=== PATIENT | male | born 1965 | race Caucasian/White ===

== ENCOUNTER 2018-02-12 14:22 | Outpatient (CLI) | payer OTHER | END 2018-02-12 14:23 | disposition home or self-care (01) | LOC: RT 14:22 | PROVIDERS: ATTEND Internal Medicine Gastroenterology | DX: I10 Essential (primary) hypertension (principal) | CPT/HCPCS: 93005 ==

== ENCOUNTER 2018-04-11 10:34 | Day surgery (SDC) | payer OTHER ==
[2018-04-11] MEDS ORDERED: LACTATED RINGERS 1,000 ML IV ONE (10:48)
--- NOTE | 2018-04-11 11:12 | ANESTHESIA ---
Pre-Anesthesia VS, & Labs - NPO >8 hours <Noman Barclay - Last Filed: 04/11/18 11:10> - NPO >8 hours <Aparna Chandler - Last Filed: 04/11/18 11:41> - Diagnosis GERD, colon polyps, alcoholic liver disease (Noman Barclay) GERD, colon polyps, alcoholic liver disease (Aparna Chandler) - Procedure EGD, colonoscopy (Noman Barclay) EGD, colonoscopy (Aparna Chandler) Height 5 ft 11 in Weight (kg) 76.2 kg Home Medications and Allergies <Noman Barclay - Last Filed: 04/11/18 11:10> <Aparna Chandler - Last Filed: 04/11/18 11:41> Home Medications: Ambulatory Orders Atorvastatin [Lipitor] 20 mg PO DAILY 04/11/18 Milk Thistle 150 mg PO DAILY 04/11/18 Omeprazole 20 mg PO DAILY 04/11/18 Atorvastatin [Lipitor] 20 mg PO DAILY 04/11/18 Milk Thistle 150 mg PO DAILY 04/11/18 Omeprazole 20 mg PO DAILY 04/11/18 Allergies/Adverse Reactions: Allergies Allergy/AdvReac Type Severity Reaction Status Date / Time No Known Drug Allergies Allergy Verified 04/11/18 10:56 Anes History & Medical History - Anesthetic History Anesthesia Complications: reports: No previous complications - Medical History Cardiovascular: reports: Hypertension, High cholesterol Pulmonary: reports: None Gastrointestinal: reports: GERD, Other (possible alcoholic liver disease) Urinary: reports: None Musculoskeletal: reports: None Endocrine/Autoimmune: reports: None Skin: reports: None - Surgical History General: Colonoscopy, EGD Orthopedic: Other (jaw reconstruction) <Noman Barclay - Last Filed: 04/11/18 11:10> Results - EKG Results EKG Comparison: Reviewed EKG <Noman Barclay - Last Filed: 04/11/18 11:10> Exam General: Alert Dental: WNL Mouth Openin Fingerbreadth Thyromental Distance: greater than 6 cm Respiratory: Lungs clear Cardiovascular: Regular rate, Normal S1, Normal S2, No murmurs <Noman Barclay - Last Filed: 04/11/18 11:10> Plan Anesthesia Type: MAC Consent for Procedure(s) Verified and Reviewed: Yes Code Status: Attempt Resuscitation ASA classification: 3-Severe systemic disease Is this case an emergency?: No <Noman Barclay - Last Filed: 04/11/18 11:10>
[2018-04-11] MEDS ORDERED: LIDOCAINE 2% 50 ML MDV IV ONE (13:00)
[2018-04-11] MEDS ORDERED: PROPOFOL 200 MG/20 ML VIAL IVP ONE (13:00)
[2018-04-11] MEDS ORDERED: LIDO GARGLE 30 ML BOTTLE PO ONE (13:20)
[2018-04-11 14:51] VITALS: BP 148/87
== END 2018-04-11 10:35 | disposition home or self-care (01) ==
LOC: SDS 10:34
PROVIDERS: ATTEND Internal Medicine Gastroenterology
PROC: 0DBN8ZZ Excision of Sigmoid Colon, Via Natural or Artificial Opening Endoscopic (ICD-10-PCS; 2018-04-11)
PROC: 0DJ08ZZ Inspection of Upper Intestinal Tract, Via Natural or Artificial Opening Endoscopic (ICD-10-PCS; principal; 2018-04-11 11:45)
PROC: 0DBH8ZZ Excision of Cecum, Via Natural or Artificial Opening Endoscopic (ICD-10-PCS; 2018-04-11 11:45)
DX: D12.0 Benign neoplasm of cecum (principal); K70.9 Alcoholic liver disease, unspecified; K21.9 Gastro-esophageal reflux disease without esophagitis; K63.89 Other specified diseases of intestine; I10 Essential (primary) hypertension; E78.00 Pure hypercholesterolemia, unspecified
CPT/HCPCS: 43235; 45380; A9270; J7120

== ENCOUNTER 2022-08-07 11:25 | Emergency (ER) | payer OTHER ==
[2022-08-07 11:40] VITALS: BP 170/93
--- NOTE | 2022-08-07 11:57 | ED Physician Documentation ---
PD HPI LOWER EXT INJURY - Stated complaint Stated Complaint: LT FISHER PX - Chief complaint Chief Complaint: Ext Problem - History obtained from History obtained from: Patient - Additional information Additional information: He has had pain of the left lower anterior fisher for the last 4 days. There is no specific injury but he walks a lot at work. PD PAST MEDICAL HISTORY - Past Medical History Cardiovascular: Hypertension, High cholesterol Respiratory: None Endocrine/Autoimmune: None GI: GERD, Other (possible alcoholic liver disease) : None Psych: None Musculoskeletal: None Derm: None - Past Surgical History General: Colonoscopy, EGD Ortho: Other (jaw reconstruction) - Present Medications Home Medications: Ambulatory Orders Medication Instructions Recorded Confirmed Atorvastatin [Lipitor] 20 mg PO DAILY 04/11/18 04/11/18 Milk Thistle 150 mg PO DAILY 04/11/18 04/11/18 Omeprazole 20 mg PO DAILY 04/11/18 04/11/18 Ibuprofen [Motrin] 600 mg PO Q6H PRN #30 tab 08/07/22 - Allergies Allergies/Adverse Reactions: Allergies Allergy/AdvReac Type Severity Reaction Status Date / Time No Known Drug Allergies Allergy Verified 04/11/18 10:56 PD ED PE NORMAL - Vitals Vital signs reviewed: Yes - General General: Alert and oriented X 3, No acute distress - Extremities Extremities: Other (He is focally tender over the tibialis anterior tendon just above the left ankle. There is no warmth or redness or swelling there. Bedside ultrasound in that area does not demonstrate a fluid collection. Normal left pedal pulses.) - Neuro Neuro: Alert and oriented X 3, Normal speech Results - Vitals Vitals: Vital Signs - 24 hr 08/07/22 11:37 Temperature 36.9 C Heart Rate 113 H Respiratory 18 Rate Blood Pressure 170/93 H O2 Saturation 97 Oxygen O2 Source Room air Departure - Departure Disposition: Home, Self Care Clinical Impression: Anterior tibialis tendinitis of left leg Condition: Good Record reviewed to determine appropriate education?: Yes Instructions: Tendonitis and Tenosynovitis Prescriptions: Ibuprofen [Motrin] 600 mg PO Q6H PRN #30 tab PRN Reason: Pain Comments: As discussed, I believe that you have tendinitis of the tibialis anterior tendon. This should respond to rest and anti-inflammatories. Wear the boot when you are up and around and limit walking. Return for new or worsening symptoms. Follow-up with your primary care physician within the week for recheck. Forms: Activity restrictions
== END 2022-08-07 12:15 | disposition home or self-care (01) ==
LOC: ED 11:25
DX: M76.812 Anterior tibial syndrome, left leg (principal); I10 Essential (primary) hypertension
CPT/HCPCS: 99282; 99283